=== PATIENT | female | born 1990 | race American Indian/Alaskan Native ===

== ENCOUNTER 2020-09-15 09:22 | Observation (INO) | payer BC ==
[2020-09-15] MEDS ORDERED: D5W/LACTATED RINGERS 1,000 ML IV SCH (10:00)
[2020-09-15] MEDS ORDERED: ONDANSETRON 4 MG/2 ML INJ IV PRN (10:00)
[2020-09-15] MEDS ORDERED: PRENATAL VIT27-FE FUMARATE-FOLIC ACID VIT TAB PO SCH (10:00)
[2020-09-15] MEDS: PROMETHAZINE 25 MG RECT SUPP PR SCH ×3 (11:06→23:50)
[2020-09-15] MEDS: METOCLOPRAMIDE 10 MG/2 ML INJ IV SCH ×3 (11:06→23:50)
[2020-09-15] MEDS ORDERED: FLU VACC QUAD 2020-2021 (6 months +)/PF 60 0.5 ML SYRINGE IM ONE (12:00)
[2020-09-15 12:41] LABS: Bilirubin,Urine NEG (Negative); Blood,Urine NEG (Negative); Color,Urine Yellow (Yellow); Mucus,Urine 2+ /HPF; Protein,Urine <15 mg/dL mg/dL (Negative)
--- NOTE | 2020-09-15 12:41 | Ultrasound Report ---
OBSTETRICAL ULTRASOUND HISTORY: Evaluate viability. FINDINGS: Imaging was performed transabdominally. The uterus measures 9.6 x 6.2 x 6.4 cm. A single vi able intrauterine is dated 7 weeks 1 day. heart tones are 120 bpm. A small implantati onal bleed measures 2.1 x 0.8 cm. Right ovary measures 2.8 x 1.8 x 2.5 cm. Left ovary measures 3.5 x 1.6 x 1.4 cm. Negative for adnexal mass or fluid. IMPRESSION: 1. Early viable intrauterine dated 7 weeks 1 day. 2. Small implantation bleed. 3. Adnexa are unremarkable. Signer Name: Ananth Michael MD Signed: 09/15/2020 12:36 PM Workstation Name: [email or web address] [id number]
--- NOTE | 2020-09-15 13:01 | History and Physical Report ---
History of Present Illness Date of examination: 09/15/20 Date of admission: 09/15/20 09:54 Chief complaint: nausea and vomiting History of present illness: 30 yo at 6w3d who was sent from [facility] for hyperemesis gravidarum. She reports she has had episodes of daily vomiting since 09/04/20 and has not been able to keep down water for the past three days. She denies vaginal bleeding. Today was her first visit. Past History Past Medical History: no pertinent history - Obstetrical History Expected Date of Delivery: 05/08/21 Actual Gestation: 6 Week(s) 3 Day(s) : 4 Para: 3 Hx # Term Pregnancies: 3 Number of Living Children: 3 Medications and Allergies Allergies Allergy/AdvReac Type Severity Reaction Status Date / Time No Known Allergies Allergy Verified 09/15/20 09:24 Active Meds: Active Medications Dextrose/Lactated Ringer's (D5lr) 1,000 mls @ 500 mls/hr IV DIRECT KIM Stop: 09/16/20 11:59 Last Admin: 09/15/20 11:13 Dose: 500 mls/hr Documented by: Dextrose/Lactated Ringer's (D5lr) 1,000 mls @ 150 mls/hr IV DIRECT KIM Metoclopramide HCl (Metoclopramide 10 Mg/2 Ml Inj) 10 mg IV Q6H [facility] Last Admin: 09/15/20 11:06 Dose: 10 mg Documented by: Multivitamins/Iron/Calcium ( [id number] Fumarate-Folic Acid Vit Tab) 1 each PO QDAY [facility] Last Admin: 09/15/20 10:54 Dose: Not Given Documented by: Ondansetron HCl (Ondansetron 4 Mg/2 Ml Inj) 4 mg IV Q6H PRN PRN Reason: N/V unrelieved by Cris Promethazine HCl (Promethazine 25 Mg Rect Supp) 25 mg IN Q6H [facility] Last Admin: 09/15/20 11:06 Dose: 25 mg Documented by: Review of Systems Constitutional: weight loss (7 lbs wt loss since beginning of ), fatigue, poor appetite Gastrointestinal: nausea, vomiting, no abdominal pain Genitourinary: no vaginal bleeding - Vital Signs Vital signs: Vital Signs Temp Pulse Resp BP Pulse Ox 97.8 F 74 18 97/64 100 09/15/20 10:15 09/15/20 10:15 09/15/20 10:15 09/15/20 10:15 09/15/20 10:15 Temp Pulse Resp BP Pulse Ox 97.8 F 74 18 97/64 100 09/15/20 10:15 09/15/20 10:15 09/15/20 10:15 09/15/20 10:15 09/15/20 10:15 - Physical Exam Abdomen: Positive: normal appearance, soft. Negative: distention, tenderness, guarding Results All other labs normal. 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
[2020-09-15] MEDS: D5W/LACTATED RINGERS 1,000 ML IV SCH ×2 (13:43→20:37)
[2020-09-15 15:54] LABS: Hematocrit 30.3 % (30.3-42.9); Mean Corpuscular HGB Conc 33 % (30-34); Mean Corpuscular Volume 90 fl (79-97); Platelet Count 158 K/mm3 (140-440); Red Blood Count 3.35 M/mm3 (3.65-5.03); Red Cell Distribution Width 17.7 % (13.2-15.2)
[2020-09-15 15:57] LABS: BUN/Creatinine Ratio 14; Blood Urea Nitrogen 7 mg/dL (7-17); Hemolysis Index 2
[2020-09-15 16:17] LABS: Hepatitis B Surface Antigen Non-Reactive (Negative); Hepatitis C Virus Antibody Non-Reactive (NonReactive)
[2020-09-15 17:52] LABS: Total Cells Counted 100
[2020-09-15 17:54] LABS: Anisocytosis Few; Ovalocytes Rare; Platelet Estimate Consistent w Auto
[2020-09-16] MEDS: D5W/LACTATED RINGERS 1,000 ML IV SCH (04:19)
[2020-09-16] MEDS ORDERED: METOCLOPRAMIDE 10 MG TAB PO SCH (06:15)
[2020-09-16] MEDS: PROMETHAZINE 25 MG RECT SUPP PR SCH (06:28)
--- NOTE | 2020-09-16 08:30 | Discharge Summary ---
Providers - Providers Date of Admission: 09/15/20 09:54 Date of discharge: 09/16/20 Attending physician: MARY MCCLELLAND MD 09/15/20 09:25 Consult to Dietitian/Nutrition [CONS] Routine Physician Instructions: Reason For Exam: Reason for Consult: hyper grav Reason for Consult: Poor oral intake Primary care physician: MARY MCCLELLAND MD Hospitalization Reason for admission: observation (Hyperemesis gravidarum) Hospital course: Pt was admitted secondary to hyperemesis gravidarum without PO intake for 3 days. She received IV fluids and antiemetics, and did not vomit throughout the course of her stay. She tolerated PO food and water and was discharged in good condition. She will follow up with [facility] in 4 weeks, or sooner PRN. Condition at discharge: Good Disposition: DC-01 TO HOME OR SELFCARE Plan - Discharge Medications Prescriptions: Metoclopramide [Reglan] 10 mg PO Q6H #120 tab - Provider Discharge Summary Activity: routine Diet: routine - Follow up plan Follow up: ERNESTINE ORELLANA CNM [Advanced Practice Nurse] - 10/13/20 (Please call office to schedule new OB appointment.)
[2020-09-16 09:22] VITALS: BP 98/52
== END 2020-09-16 09:45 | disposition home or self-care (01) ==
LOC: 3A 09:22 → UNDOADMOB 09:22 → OB 09:54
PROVIDERS: ADMIT Obstetrics & Gynecology; ATTEND Obstetrics & Gynecology
DX: O21.0 Mild hyperemesis gravidarum (principal); O26.891 Other specified pregnancy related conditions, first trimester; E86.0 Dehydration; Z3A.01 Less than 8 weeks gestation of pregnancy
CPT/HCPCS: 36415; 76801; 80048; 80074; 81001; 82010; 82150; 83690; 84443; 85025; 96361; 96374; 96376; G0378; G0379; J2765; J7121; 85007